=== PATIENT | female | born 1965 | race Two or more races ===

== ENCOUNTER 2018-08-02 11:58 | Day surgery (SDC) | payer OTHER ==
[2018-08-02] MEDS ORDERED: LIDOCAINE 2% (SDV) 5 ML INJ (14:20)
[2018-08-02] MEDS ORDERED: PROPOFOL 60 ML (14:20)
== END 2018-08-02 16:11 | disposition home or self-care (01) ==
LOC: GIL 11:58
DX: Z12.11 Encounter for screening for malignant neoplasm of colon (principal); K29.50 Unspecified chronic gastritis without bleeding; B96.81 Helicobacter pylori [H. pylori] as the cause of diseases classified elsewhere; K64.8 Other hemorrhoids; K20.9 Esophagitis, unspecified; I10 Essential (primary) hypertension; E11.9 Type 2 diabetes mellitus without complications
CPT/HCPCS: 43239; 82962; 88305; 88312

== ENCOUNTER → 2019-03-06 | Outpatient (CLI) | payer OTHER ==
[2019-03-06 09:29] LABS: ANION GAP 11 (5-13); BLOOD UREA NITROGEN 6 mg/dl (7-20); CALCIUM 9.8 mg/dl (8.4-10.2); CARBON DIOXIDE 25 mmol/L (21-31); CHLORIDE 108 mmol/L (97-110); CREATININE 0.56 mg/dl (0.44-1.00); Estimated GFR > 60 mL/min (>60); GLUCOSE 113 mg/dl (70-220); POTASSIUM 4.7 mmol/L (3.5-5.1); SODIUM 144 mmol/L (135-144)
== END | disposition home or self-care (01) ==
LOC: LAB 08:28
DX: R07.9 Chest pain, unspecified (principal); R94.39 Abnormal result of other cardiovascular function study
CPT/HCPCS: 80048

== ENCOUNTER → 2019-03-29 | Outpatient (CLI) | payer OTHER ==
[2019-03-29] MEDS: METOPROLOL 100 MG TAB (10:10)
[2019-03-29] MEDS: NITROGLYCERIN AEROSOL (4.9 GM) (10:54)
[2019-03-29] MEDS: IOHEXOL 100 ML (11:50)
[2019-03-29] MEDS: SOD CHLORIDE 0.9% 100 ML (11:50)
[2019-03-29] MEDS: ONDANSETRON 4 MG INJ (12:18)
[2019-03-29] MEDS: METOPROLOL 5 MG INJ (12:19)
== END | disposition home or self-care (01) ==
LOC: C/S 09:14
DX: R94.39 Abnormal result of other cardiovascular function study (principal); R07.9 Chest pain, unspecified
CPT/HCPCS: 75571; 75571-59; 75574

== ENCOUNTER 2019-07-24 05:45 | Day surgery (SDC) | payer OTHER | END 2019-07-24 06:00 | disposition home or self-care (01) | LOC: SDS 05:45 | DX: D25.0 Submucous leiomyoma of uterus (principal); Z53.9 Procedure and treatment not carried out, unspecified reason; E11.9 Type 2 diabetes mellitus without complications | CPT/HCPCS: 82962 ==